=== PATIENT | male | born 1985 | race Caucasian/White ===

== ENCOUNTER 2020-07-08 13:20 | Outpatient (CLI) | payer BC ==
[2020-07-08 21:47] LABS: SARS-CoV-2 PCR by NAA Not Detected (NotDetected)
== END 2020-07-08 13:21 | disposition home or self-care (01) ==
LOC: LABBT 13:20
PROVIDERS: ATTEND Orthopaedic Surgery
DX: Z01.812 Encounter for preprocedural laboratory examination (principal); Z20.822 Contact with and (suspected) exposure to COVID-19
CPT/HCPCS: 87635; U0003; U0005

== ENCOUNTER 2020-07-11 06:44 | Day surgery (SDC) | payer BC ==
[2020-07-10 08:42] VITALS: BMI 22.9
[2020-07-11] MEDS ORDERED: Midazolam HCl 2 mg/2 ml Vial ONE (08:21)
[2020-07-11] MEDS ORDERED: Bupivacaine PF 0.5% 30 ML VIAL ONE (08:47)
[2020-07-11] MEDS ORDERED: EPINEPHrine 1 MG/ML AMP ONE (08:47)
[2020-07-11] MEDS ORDERED: Fentanyl 100 MCG/2 ML VIAL ONE (08:55)
[2020-07-11] MEDS ORDERED: Lidocaine 1% PF 5 ML VIAL ONE (09:27)
[2020-07-11] MEDS ORDERED: PROPOFOL 200 MG/20 ML VIAL ONE (09:27)
[2020-07-11] MEDS ORDERED: Dexamethasone 20 MG/5 ML VIAL ONE (09:27)
[2020-07-11] MEDS ORDERED: Ondansetron PF 4 MG/2 ML Vial ONE (09:27)
[2020-07-11] MEDS ORDERED: HYDROcodone/Acetaminophen 5/325 mg Tablet ONE (11:08)
== END 2020-07-11 12:36 | disposition home or self-care (01) ==
LOC: SDC 06:44
PROVIDERS: ATTEND Orthopaedic Surgery
PROC: 01N40ZZ Release Ulnar Nerve, Open Approach (ICD-10-PCS; principal; 2020-07-11)
DX: G56.22 Lesion of ulnar nerve, left upper limb (principal); F17.290 Nicotine dependence, other tobacco product, uncomplicated; M25.512 Pain in left shoulder; Z79.1 Long term (current) use of non-steroidal anti-inflammatories (NSAID); Z79.899 Other long term (current) drug therapy; Z98.1 Arthrodesis status
CPT/HCPCS: J0171; J0690; J1100; J2250; J2405; J2704; J3010; S0020